=== PATIENT | male | born 1985 | race Caucasian/White ===

== ENCOUNTER 2019-03-01 10:22 | Emergency (ER) | payer BC, SELFPAY ==
[~2019-03-01] VITALS: Ht 160 cm; Wt 63.0 kg
[~2019-03-01 10:22] MED LIST: ACET1TAB55 PO; CYCL10TA PO; PRED20TA PO
[2019-03-01] MEDS ORDERED: ACET-683 PO (10:38)
[2019-03-01 11:00] LABS: HEMATOCRIT 40.4 % (42.0-52.0); HEMOGLOBIN 12.7 g/dl (13.5-17.5); MEAN CORPUSCULAR HEMOGLOBIN 28.9 pg (27.0-33.0); MEAN CORPUSCULAR HGB CONC 31.4 g/dl (32.0-36.5); MEAN CORPUSCULAR VOLUME 91.8 fl (80.0-96.0); PLATELET COUNT, AUTOMATED 258 10^3/uL (150-450); WHITE BLOOD COUNT 11.8 10^3/uL (4.0-10.0)
[2019-03-01] MEDS ORDERED: ONDANSETRON 4MG/2ML VIAL (J2405) IV ONE (11:00)
[2019-03-01 11:10] LABS: INR 1.08; PROTHROMBIN TIME 13.7 SECONDS (11.8-14.0)
[2019-03-01 11:11] LABS: PARTIAL THROMBOPLASTIN TIME 25.5 SECONDS (25.0-38.4)
[2019-03-01] MEDS ORDERED: NS 1,000 ML IV ONE (11:15)
[2019-03-01] MEDS ORDERED: MORPHINE 4 MG/ML 1ML VIAL/SYRINGE (J2270) IV ONE (11:15)
--- NOTE | 2019-03-01 11:15 | REP ---
INDICATION: Trauma PROCEDURE: CT head without contrast COMPARISON STUDIES: No prior similar FINDINGS: There is a punctate hyperdense focus in the left frontal lobe, cortical and subcortical. There is a trace subdural as well. No mass effect or midline shift. Ventricles, cisterns and sulci within normal limits. On the bone windows, there is a nondisplaced linear lucency at the midline occipital and suboccipital region that appears to represent a nondisplaced skull fracture. CONCLUSION: 1. Small contusion of the left frontal lobe with intraparenchymal blood and trace subdural collection 2. Nondisplaced midline occipital skull fracture. Findings discussed with Katelin Arredondo at the time of interpretation. Electronically Signed by Marcus Marin MD 03/01/2019 11:07 A
--- NOTE | 2019-03-01 11:18 | REP ---
INDICATION: Trauma PROCEDURE: CT cervical spine. Axial CT images with multiplanar re-formations COMPARISON STUDIES: No prior similar FINDINGS: No evidence of fracture or malalignment. Prevertebral soft tissues within normal limits. No significant degenerative changes. No limiting canal or foraminal stenosis. The nondisplaced occipital/suboccipital fractures seen on the head CT is also evident on CT cervical spine. CONCLUSION: Normal examination. No post-traumatic findings within the cervical spine. Electronically Signed by Marcus Marin MD 03/01/2019 11:10 A
[2019-03-01 11:29] LABS: BLOOD UREA NITROGEN 17 MG/DL (7-18); CALCIUM LEVEL 9.4 MG/DL (8.5-10.1); CARBON DIOXIDE LEVEL 25 MEQ/L (21-32); CHLORIDE LEVEL 109 MEQ/L (98-107); CREATININE FOR GFR 0.94 MG/DL (0.70-1.30); GLOMERULAR FILTRATION RATE > 60.0 (>60); GLUCOSE, FASTING 102 MG/DL (70-100); POTASSIUM SERUM 4.1 MEQ/L (3.5-5.1); SODIUM LEVEL 142 MEQ/L (136-145)
[2019-03-01 12:06] VITALS: BP 117/68
== END 2019-03-01 12:09 | disposition short-term general hospital (02) ==
LOC: M ED 10:22
DX: S02.119A Unspecified fracture of occiput, initial encounter for closed fracture (principal); S00.83XA Contusion of other part of head, initial encounter; W17.89XA Other fall from one level to another, initial encounter; Y92.39 Other specified sports and athletic area as the place of occurrence of the external cause; Y93.B9 Activity, other involving muscle strengthening exercises
CPT/HCPCS: 70450; 72125; 80048; 85027; 85610; 85730; 86850; 86900; 86901; 96374; 96375; 99284; J2270; J2405

== ENCOUNTER 2024-11-26 10:37 | Emergency (ER) | payer OTHER ==
[~2024-11-26] VITALS: Ht 160 cm; Wt 68.1 kg
[~2024-11-26 10:37] MED LIST changes: +ACET-683 PO; +CYCL-707 PO; -CYCL10TA PO
[2024-11-26 10:40] VITALS: TEMP 98.1
[2024-11-26] MEDS: ONDANSETRON 4MG ORAL DISINTEGRATING TAB PO ONE (11:39)
[2024-11-26 13:29] LABS: BASO # 0.0 10^3/uL (0.0-0.2); BASO % 0.1 % (0.0-1.0); EOS # 0.0 10^3/uL (0.0-0.5); EOS % 0.0 % (0.0-3.0); LYMPH # 0.7 10^3/uL (1.5-5.0); LYMPH % 8.1 % (24.0-44.0); MONO # 0.3 10^3/uL (0.0-0.8); MONO % 3.8 % (2.0-8.0); NEUTROPHILS # 7.7 10^3/uL (1.5-8.5); NEUTROPHILS % 87.5 % (36.0-66.0); PLATELET COUNT, AUTOMATED 300 10^3/uL (150-450)
[2024-11-26] MEDS: PANTOPRAZOLE 40MG VIAL IV ONE (13:40)
[2024-11-26] MEDS: KETOROLAC 30 MG/ML 1 ML VIAL IV ONE (13:40)
[2024-11-26] MEDS: LIDOCAINE VISCOUS 2% SOLN 15 ML UDC PO ONE (13:41)
[2024-11-26 13:56] LABS: ALT/SGPT 30.0 U/L (7.0-40); AST/SGOT 29.0 U/L (<34)
[2024-11-26] MEDS ORDERED: ISOVUE-370 76% 100 ML VIAL As Ordered ONE (14:13)
[2024-11-26] MEDS: NS (Normal Saline) 0.9% 1,000 ML IV ONE (14:53)
[2024-11-26] MEDS: SUCRALFATE SUSP 1GM/10ML UD PO ONE (16:11)
[2024-11-26 18:30] VITALS: O2SAT 98
[2024-11-26 18:31] VITALS: BP 119/62
== END 2024-11-26 18:50 | disposition home or self-care (01) ==
LOC: M ED 10:37
DX: K52.9 Noninfective gastroenteritis and colitis, unspecified (principal); R11.2 Nausea with vomiting, unspecified; R93.2 Abnormal findings on diagnostic imaging of liver and biliary tract; N28.1 Cyst of kidney, acquired; F17.200 Nicotine dependence, unspecified, uncomplicated; F12.10 Cannabis abuse, uncomplicated
CPT/HCPCS: 74177; 80047; 80076; 83605; 83690; 84145; 85025; 87486; 87581; 87633; 87798; 96374; 99284; J1885; J2470; Q9967